=== PATIENT | female | born 1945 | race Caucasian/White ===

== ENCOUNTER 2021-04-18 01:34 | Emergency (ER) | payer MEDICARE ==
[~2021-04-18] VITALS: Ht 154.9 cm; Wt 112.2 kg
[2021-04-18 02:03] LABS: BASO % 0.3 % (0.0-1.0); EOS # 0.1 10*3/uL (0.0-0.4); LYMPH # 0.6 10*3/uL (1.3-4.4); MEAN CELL VOLUME 92.3 fl (81.0-99.0); MEAN CORPUSCULAR HGB 29.2 pg (27.0-31.0); MEAN CORPUSCULAR HGB CONC 31.7 g/dl (33.0-37.0); MEAN PLATELET VOLUME 11.7 fl (9.6-12.3); MONO # 0.5 10*3/uL (0.1-1.0); MONO % 7.1 % (3.0-9.0); NEUT # 5.1 10*3/uL (2.3-7.9); NEUT % 80.8 % (47.0-73.0); PLATELET COUNT AUTOMATED 166 10*3/uL (130-400); RED BLOOD COUNT 3.25 10*6/uL (4.10-5.10); RED CELL DISTRI WIDTH 14.6 % (0-14.5); WHITE BLOOD COUNT 6.3 10*3/uL (4.8-10.8)
[2021-04-18 02:08] LABS: BILIRUBIN Negative (Negative); BLOOD 3+ (Negative); CLARITY Turbid (Clear); COLOR Yellow (Yellow); GLUCOSE Negative (Negative); KETONE Negative (Negative); LEUKO ESTERASE 3+ (Negative); NITRITE Positive (Negative); SPECIFIC GRAVITY 1.025 (1.001-1.030)
[2021-04-18 02:18] LABS: ALBUMIN 2.4 gm/dl (3.1-4.5); ALKALINE PHOSPHATASE 133 U/L (45-117); BUN 14 mg/dl (7-24); CHLORIDE 105 mmol/L (98-107); CREATININE 0.54 mg/dL (0.55-1.02); POTASSIUM 2.8 mmol/L (3.5-5.1); SGOT/AST 11 IU/L (3-35); SGPT/ALT 12 U/L (12-78); SODIUM 139 mmol/L (136-145); TOTAL PROTEIN 6.3 gm/dL (6.4-8.2)
[2021-04-18 02:18] LABS: BACTERIA 3+; RBC 21-30 rbc/hpf (0-2); WBC TNTC wbc/hpf (0-5)
== END 2021-04-18 04:05 ==
LOC: ED 01:34
PROVIDERS: Internal Medicine
DX: N39.0 Urinary tract infection, site not specified (principal); E87.6 Hypokalemia; E66.9 Obesity, unspecified; Z88.2 Allergy status to sulfonamides; Z88.8 Allergy status to other drugs, medicaments and biological substances

== ENCOUNTER 2021-05-03 09:44 | Emergency (ER) | payer OTHER ==
[~2021-05-03] VITALS: Ht 154.9 cm; Wt 104.3 kg
[2021-05-03 10:22] LABS: BILIRUBIN Negative (Negative); BLOOD 3+ (Negative); CLARITY Turbid (Clear); COLOR Orange (Yellow); GLUCOSE Negative (Negative); KETONE Trace (Negative); LEUKO ESTERASE 3+ (Negative); NITRITE Positive (Negative); SPECIFIC GRAVITY 1.025 (1.001-1.030)
[2021-05-03 10:32] LABS: BACTERIA 4+; RBC TNTC rbc/hpf (0-2); WBC TNTC wbc/hpf (0-5)
[2021-05-03] MEDS ORDERED: CIPRO500 MG PO (11:00)
[2021-05-03] MEDS ORDERED: AMPICILLIN500 MG PO (11:00)
== END 2021-05-03 12:23 ==
LOC: ED 09:44
PROVIDERS: Student in an Organized Health Care Education/Training Program
DX: N39.0 Urinary tract infection, site not specified (principal); Z88.2 Allergy status to sulfonamides; Z88.8 Allergy status to other drugs, medicaments and biological substances

== ENCOUNTER → 2021-06-26 | Outpatient (CLI) | payer OTHER ==
[~2021-06-26] MED LIST: AMPICILLIN500 MG PO; CIPRO500 MG PO
== END | disposition home or self-care (01) ==
LOC: US 13:30
PROVIDERS: ATTEND Physician Assistant Medical
DX: R10.31 Right lower quadrant pain (principal); R10.32 Left lower quadrant pain; R60.0 Localized edema

== ENCOUNTER → 2021-07-02 | Outpatient (CLI) | payer OTHER | END | disposition home or self-care (01) | LOC: CT 09:46 | PROVIDERS: ATTEND Obstetrics & Gynecology Gynecologic Oncology | DX: R10.31 Right lower quadrant pain (principal); R10.32 Left lower quadrant pain; Q89.09 Congenital malformations of spleen ==

== ENCOUNTER 2023-07-04 00:50 | Emergency (ER) | payer OTHER ==
[~2023-07-04] VITALS: Ht 152.4 cm; Wt 67.6 kg
[2023-07-04 01:23] LABS: BASO % 0.4 % (0.0-1.0); EOS % 0.8 % (1.0-4.0); HEMATOCRIT 27.8 % (37.0-47.0); LYMPH # 0.7 10*3/uL (1.3-4.4); LYMPH % 13.5 % (27.0-41.0); MEAN CELL VOLUME 93.3 fl (81.0-99.0); MEAN CORPUSCULAR HGB 29.5 pg (27.0-31.0); MEAN CORPUSCULAR HGB CONC 31.7 g/dl (33.0-37.0); MEAN PLATELET VOLUME 11.7 fl (9.6-12.3); MONO # 0.3 10*3/uL (0.1-1.0); NEUT % 78.7 % (47.0-73.0); PLATELET COUNT AUTOMATED 163 10*3/uL (130-400); RED BLOOD COUNT 2.98 10*6/uL (4.10-5.10); RED CELL DISTRI WIDTH 15.8 % (0-14.5)
[2023-07-04 01:39] LABS: BILIRUBIN Negative (Negative); BLOOD Negative (Negative); CLARITY Clear (Clear); COLOR Yellow (Yellow); GLUCOSE Negative (Negative); KETONE Negative (Negative); LEUKO ESTERASE 2+ (Negative); NITRITE Negative (Negative); PH 5.5 (4.5-8.0); UROBILINOGEN 0.2 E.U./dl (0.0-1.0)
[2023-07-04 01:47] LABS: ALKALINE PHOSPHATASE 190 U/L (46-116); BUN 29 mg/dl (9-23); CHLORIDE 101 mmol/L (98-107); POTASSIUM 4.5 mmol/L (3.4-5.1)
[2023-07-04 01:48] LABS: SGPT/ALT < 7 U/L (10-49)
[2023-07-04] MEDS ORDERED: AMOX-CLAV 875-1 EACH PO (01:59)
[2023-07-04] MEDS ORDERED: VITAMIN C500 M8 PO (02:00)
[2023-07-04] MEDS ORDERED: COREG12.5 M1 PO (02:01)
[2023-07-04] MEDS ORDERED: CHOLECALCIFEROL1 GM PO (02:04)
[2023-07-04] MEDS ORDERED: FER-IN-SOL15 MG/1 ML PO (02:05)
[2023-07-04] MEDS ORDERED: HYOSCYAMINE0.125 MG PO (02:06)
[2023-07-04 02:07] LABS: BACTERIA TRACE; WBC 41-50 wbc/hpf (0-5)
[2023-07-04] MEDS ORDERED: MAGNESIUM400 MG PO (02:08)
[2023-07-04] MEDS ORDERED: ONDANSETRON8 MG PO (02:08)
[2023-07-04] MEDS ORDERED: OXYCODONE HCL10 M1 PO (02:11)
[2023-07-04] MEDS ORDERED: POTASSIUM CHLO20 ME3 PO (02:13)
[2023-07-04] MEDS ORDERED: ZOLOFT100 MG PO (02:15)
[2023-07-04] MEDS ORDERED: TYLENOL325 M2 PO (02:15)
== END 2023-07-04 09:10 | disposition short-term general hospital (02) ==
LOC: ED 00:50
PROVIDERS: Internal Medicine
DX: T83.038A Leakage of other urinary catheter, initial encounter (principal); N17.9 Acute kidney failure, unspecified; R73.9 Hyperglycemia, unspecified; E83.42 Hypomagnesemia; D64.9 Anemia, unspecified; E43 Unspecified severe protein-calorie malnutrition; Y84.8 Other medical procedures as the cause of abnormal reaction of the patient, or of later complication, without mention of misadventure at the time of the procedure; Y92.89 Other specified places as the place of occurrence of the external cause

== ENCOUNTER 2023-07-24 07:26 | Emergency (ER) | payer OTHER ==
[~2023-07-24] VITALS: Ht 160 cm; Wt 54.4 kg
[~2023-07-24 07:26] MED LIST changes: +AMOX-CLAV 875-1 EACH PO; +CHOLECALCIFEROL1 GM PO; +COREG12.5 M1 PO; +FER-IN-SOL15 MG/1 ML PO; +HYOSCYAMINE0.125 MG PO; +MAGNESIUM400 MG PO; +ONDANSETRON8 MG PO; +OXYCODONE HCL10 M1 PO; +POTASSIUM CHLO20 ME3 PO; +TYLENOL325 M2 PO; +VITAMIN C500 M8 PO; +ZOLOFT100 MG PO
[2023-07-24 08:16] LABS: BASO % 0.2 % (0.0-1.0); EOS % 0.1 % (1.0-4.0); HEMATOCRIT 36.9 % (37.0-47.0); LYMPH # 1.3 10*3/uL (1.3-4.4); LYMPH % 7.7 % (27.0-41.0); MEAN CELL VOLUME 87.4 fl (81.0-99.0); MEAN CORPUSCULAR HGB 28.2 pg (27.0-31.0); MEAN CORPUSCULAR HGB CONC 32.2 g/dl (33.0-37.0); MEAN PLATELET VOLUME 10.6 fl (9.6-12.3); MONO # 0.8 10*3/uL (0.1-1.0); MONO % 4.9 % (3.0-9.0); NEUT # 13.9 10*3/uL (2.3-7.9); NEUT % 85.4 % (47.0-73.0); PLATELET COUNT AUTOMATED 453 10*3/uL (130-400); RED BLOOD COUNT 4.22 10*6/uL (4.10-5.10); RED CELL DISTRI WIDTH 16.7 % (0-14.5); WHITE BLOOD COUNT 16.3 10*3/uL (4.8-10.8)
[2023-07-24 08:42] LABS: ACT PARTIAL THROMBO TIME 32.7 SECONDS (20.0-32.1)
[2023-07-24 08:48] LABS: TOTAL PROTEIN 9.4 gm/dL (6.0-8.0)
[2023-07-24 08:51] LABS: POTASSIUM 7.5 mmol/L (3.4-5.1)
[2023-07-24 11:04] LABS: BILIRUBIN Negative (Negative); BLOOD 2+ (Negative); CLARITY Turbid (Clear); COLOR Yellow (Yellow); GLUCOSE Negative (Negative); KETONE Negative (Negative); LEUKO ESTERASE 3+ (Negative); NITRITE Positive (Negative); PH 7.5 (4.5-8.0); SPECIFIC GRAVITY 1.025 (1.001-1.030); UROBILINOGEN 0.2 E.U./dl (0.0-1.0)
[2023-07-24 11:16] LABS: BACTERIA 4+; WBC TNTC wbc/hpf (0-5)
[2023-07-24] MEDS ORDERED: MIRTAZAPINE15 M2 PO (11:23)
[2023-07-24] MEDS ORDERED: CARVEDILOL3.125 MG PO (11:41)
[2023-07-24] MEDS ORDERED: PANTOPRAZOLE SO40 MG PO (11:43)
[2023-07-24] MEDS ORDERED: FEOSOL325 MG PO (11:43)
[2023-07-24 12:14] LABS: ALKALINE PHOSPHATASE 146 U/L (46-116); BUN 150 mg/dl (9-23); CHLORIDE 96 mmol/L (98-107); TOTAL PROTEIN 6.6 gm/dL (6.0-8.0)
[2023-07-24 12:25] LABS: POTASSIUM 5.4 mmol/L (3.4-5.1); SGPT/ALT < 7 U/L (5-49)
== END 2023-07-24 15:00 | disposition short-term general hospital (02) ==
LOC: ED 07:26
PROVIDERS: Emergency Medicine
DX: A41.9 Sepsis, unspecified organism (principal); N19 Unspecified kidney failure; E87.5 Hyperkalemia; E87.1 Hypo-osmolality and hyponatremia; N39.0 Urinary tract infection, site not specified; F32.A Depression, unspecified; F41.9 Anxiety disorder, unspecified; I10 Essential (primary) hypertension; E78.5 Hyperlipidemia, unspecified; Z88.2 Allergy status to sulfonamides; Z88.1 Allergy status to other antibiotic agents; Z79.899 Other long term (current) drug therapy